=== PATIENT | male | born 1965 | race Caucasian/White ===

== ENCOUNTER 2019-02-21 08:10 | Day surgery (SDC) | payer BC ==
[~2019-02-21] VITALS: Wt 66.8 kg
[~2019-02-21 08:10] MED LIST: Keflex500 MG PO
--- NOTE | 2019-02-21 09:26 | NUR ---
02/21/19 0926 Hansa March History, Chart, Medications and Allergies reviewed before start of procedure.PATIENT DETERMINED TO BE ASA APPROPRIATE FOR PROPOFOL SEDATION PRIOR TO START OF PROCEDURE BY .MONITOR INTACT WITH CONTINUOUS PULSE OXIMETRY AND INTERMITTENT BP.3-LEAD EKG REVIEWED WITH PHYSICIAN PRIOR TO START OF PROCEDURE.O2 VIA N/C INTACT THROUGHOUT SEDATION/PROCEDURE.
--- NOTE | 2019-02-21 10:00 | NUR ---
REVIEWED DISCHARGE INSTRUCTIONS WITH PATIENT AND - BOTH OF WHOM VERBALIZE UNDERSTANDING OF ALL INSTRUCTIONS GIVEN. PT WAS AWAKE AND CONVERSING WITH STAFF UPON ARRIVAL TO RECOVERY AREA. SIPPING JUICE WITHOUT DIFFICULTY.
--- NOTE | 2019-02-21 10:09 | NUR ---
PT DRESSED SELF WITH MINOR ASSISTANCE FROM . NO DIFFICULTY. TOLERATED ACTIVITY WELL. IV DC TIP INTACT AND PATIENT DC HOME AMBULATORY WITH .
== END 2019-02-21 22:44 | disposition home or self-care (01) ==
LOC: ORSCMMR 08:10 → ORD 09:00 → ORSCMMR 22:44
PROVIDERS: Internal Medicine Gastroenterology
PROC: 0DJD8ZZ Inspection of Lower Intestinal Tract, Via Natural or Artificial Opening Endoscopic (ICD-10-PCS; principal; 2019-02-21 09:00)
DX: Z12.11 Encounter for screening for malignant neoplasm of colon (principal)
CPT/HCPCS: J2704; J7120